=== PATIENT | male | born 1945 ===

== ENCOUNTER 2018-02-25 07:31 | Emergency (ER) | payer OTHER ==
[~2018-02-25] VITALS: Ht 175.3 cm; Wt 72.1 kg
[2018-02-25] MEDS ORDERED: DOXAZOSIN MESYLA4 MG (07:41)
[2018-02-25] MEDS ORDERED: NIFEDICAL (07:42)
[2018-02-25] MEDS ORDERED: IRBESARTAN-HCT1 EAC1 (07:42)
== END 2018-02-25 13:40 | disposition home or self-care (01) ==
LOC: ER 07:31 → CPU-OBS 07:35 → ER 13:40
DX: I47.1 Supraventricular tachycardia (principal); R07.89 Other chest pain